=== PATIENT | female | born 2000 | race African-American/Black ===

== ENCOUNTER 2024-07-24 14:10 | Emergency (ER) | payer SELFPAY ==
[~2024-07-24] VITALS: Ht 172.7 cm; Wt 63.5 kg
[2024-07-24 14:17] VITALS: PULSE 77; RESP 16; TEMP 97.8; O2SAT 100
== END 2024-07-24 15:25 | disposition home or self-care (01) ==
LOC: ER 15:15
DX: T63.461A Toxic effect of venom of wasps, accidental (unintentional), initial encounter (principal); Y92.89 Other specified places as the place of occurrence of the external cause
CPT/HCPCS: 99282